=== PATIENT | female | born 1975 | race Caucasian/White ===

== ENCOUNTER → 2021-01-20 13:57 | Outpatient (CLI) | payer MEDICAID, SELFPAY ==
[2021-01-20 14:21] LABS: Basophils % 0.6 % (0.1-2.0); Eosinophils # 0.1 K/mm3 (0.0-0.4); Eosinophils % 1.3 % (0.1-12.0); Hematocrit 40.7 % (37.0-47.0); Hemoglobin 13.3 g/dL (12.2-16.2); Lymphocytes # 2.1 K/mm3 (0.7-4.5); Lymphocytes % 31.4 % (10-50); Mean Corpuscular HGB Conc 32.8 g/dL (31.8-35.4); Mean Corpuscular Hemoglobin 30.1 pg (27.0-31.2); Mean Corpuscular Volume 91.8 fl (81-99); Mean Platelet Volume 9.1 fl (7.4-10.4); Monocytes # 0.3 K/mm3 (0.1-1.0); Neutrophils # 4.2 K/mm3 (1.8-7.8); Neutrophils % 62.7 % (37.0-80.0); Platelet Count 287 K/mm3 (142-424); Red Blood Count 4.44 M/mm3 (4.20-5.40); Red Cell Distribution Width 15.4 % (11.5-17.5); White Blood Count 6.7 K/mm3 (4.8-10.8)
[2021-01-20 14:36] LABS: Chloride 105 mmol/L (98-107); Potassium 4.5 mmoL/L (3.5-5.1); Sodium 140 mmol/L (136-145)
[2021-01-20 14:39] LABS: Alanine Aminotransferase 30 U/L (12-78); Albumin Level 4.4 g/dl (3.5-5.0); Albumin/Globulin Ratio 1.3 (1.1-1.8); Alkaline Phosphatase 124 U/L (38-126); Anion Gap 12.5 mEq/L (5-15); Aspartate Amino Transferase 33 U/L (14-36); Bilirubin,Total 1.2 mg/dl (0.2-1.3); Blood Urea Nitrogen 15 mg/dl (7-17); Calcium 9.1 mg/dl (8.4-10.2); Carbon Dioxide 27 mmol/L (22.0-30.0); Cholesterol 247 mg/dl (140-200); Estimated Glomerular Filt Rate 91 ml/min (>60); GFR (African American) 111 ML/MIN (>60); Globulin 3.5 g/dL (1.3-3.2); Glucose 98 mg/dl (74-100); Total Protein,Serum 7.9 g/dl (6.3-8.2); Triglycerides 169 mg/dl (30-150); VLDL Cholesterol 34 mg/dL (0-40)
[2021-01-20 14:40] LABS: HDL Cholesterol 31 mg/dl (40-60)
[2021-01-20 14:50] LABS: Direct LDL Cholesterol 183.02 mg/dL (100-129)
[2021-01-20 18:58] LABS: Thyroid Stimulating Hormone 3.65 uIU/mL (0.465-4.68)
== END ==
PROVIDERS: Visit Provider Nurse Practitioner Family
DX: J45.909 Unspecified asthma, uncomplicated (principal); M79.7 Fibromyalgia; E55.9 Vitamin D deficiency, unspecified
CPT/HCPCS: 80053; 80061; 82306; 84436; 84443; 85025

== ENCOUNTER 2021-08-29 00:42 | Emergency (ER) | payer MEDICAID, SELFPAY ==
[2021-08-29 00:42] VITALS: BP 136/73; PULSE 92; RESP 18; TEMP 36.7; O2SAT 95; BMI 41.5
[2021-08-29 01:21] LABS: Basophils # 0.2 K/mm3 (0-0.2); Basophils % 2.2 % (0.1-2.0); Eosinophils # 0.2 K/mm3 (0.0-0.4); Eosinophils % 2.8 % (0.1-12.0); Hematocrit 40.3 % (42.0-52.0); Hemoglobin 12.5 g/dL (14.1-18.0); Lymphocytes # 3.5 K/mm3 (0.7-4.5); Lymphocytes % 46.5 % (10-50); Mean Corpuscular Hemoglobin 29.8 pg (27.0-31.2); Mean Platelet Volume 9.3 fl (7.4-10.4); Monocytes # 0.4 K/mm3 (0.1-1.0); Monocytes % 4.9 % (1.7-9.3); Neutrophils # 3.3 K/mm3 (1.8-7.8); Neutrophils % 43.6 % (37.0-80.0); Platelet Count 280 K/mm3 (142-424); Red Cell Distribution Width 16.5 % (11.5-17.5); White Blood Count 7.6 K/mm3 (4.8-10.8)
[2021-08-29 01:27] LABS: Alanine Aminotransferase 31 U/L (12-78); Albumin Level 4.1 g/dl (3.5-5.0); Albumin/Globulin Ratio 1.2 (1.1-1.8); Alkaline Phosphatase 104 U/L (38-126); Anion Gap 10.6 mEq/L (5-15); Aspartate Amino Transferase 38 U/L (17-59); Bilirubin,Total 0.5 mg/dl (0.2-1.3); Blood Urea Nitrogen 17 mg/dl (9-20); Calcium 8.5 mg/dl (8.4-10.2); Carbon Dioxide 29 mmol/L (22.0-30.0); Chloride 104 mmol/L (98-107); Creatinine Clearance Estimated 117 mL/min (50-200); Estimated Glomerular Filt Rate 123 ml/min (>60); GFR (African American) 148 ML/MIN (>60); Globulin 3.3 g/dL (1.3-3.2); Glucose 139 mg/dl (74-100); Potassium 3.6 mmoL/L (3.5-5.1); Sodium 140 mmol/L (136-145); Total Protein,Serum 7.4 g/dl (6.3-8.2)
[2021-08-29 01:47] LABS: Erythrocyte Sedimentation Rate 41 mm/hr (0-15)
--- NOTE | 2021-08-29 01:58 | HMH.EDGENADL ---
ED Disposition Clinical Impression: Neuropathic pain of both legs Disposition: Home, Self-Care Condition on Discharge: Good Instructions: DI for Acute Pain -- Adult Additional Instructions: see pcp for follow up Prescriptions: predniSONE [Prednisone 20mg Tab] 20 mg PO BID #10 tab Transmission Status: Pending to [facility] Ketorolac Tromethamine [Toradol 10mg tablet] 10 mg PO Q6HP PRN #10 tab MDD 40mg/day PRN Reason: Moderate To Severe Pain Transmission Status: Pending to [facility] Referrals: Provider,Referral, [Primary Care Provider] - - Critical Care Critical Care Time: No Attestation: On 08/29/21, the high probability of a clinically significant, sudden or life threatening deterioration of the following system(s) required my full and direct attention, intervention and personal management. The time I documented below is in addition to time spent performing reported procedures but includes the following listed in this critical care notation. Medical Decision Making - Medical Records Medical records reviewed: Yes: I reviewed the patient's medical records. - Domingo Inquiry Pt receiving controlled substance: No Vital Signs: 08/29/21 00:42 Temperature 98.1 F Temperature Source Oral Pulse Rate [Left Radial] 92 H Respiratory Rate 18 Blood Pressure [Right Arm] 136/73 Blood Pressure Mean [Right Arm] 94 Blood Pressure Source [Right Arm] Automatic Cuff Blood Pressure Position [Right Arm] Sitting 02 Sat by Pulse Oximetry 95 Oxygen Delivery Method Room Air - Lab Data Lab results reviewed: Yes: I reviewed the patient's lab results. Lab Results 08/29/21 01:10: WBC 7.6, RBC 4.20 L, Hgb 12.5 L, Hct 40.3 L, MCV 96.0 H, MCH 29.8, MCHC 31.0 L, RDW 16.5, Plt Count 280, MPV 9.3, Neut % (Auto) 43.6, Lymph % (Auto) 46.5, Park % (Auto) 4.9, Eos % (Auto) 2.8, Baso % (Auto) 2.2 H, Neut # (Auto) 3.3, Lymph # (Auto) 3.5, Park # (Auto) 0.4, Eos # (Auto) 0.2, Baso # (Auto) 0.2, ESR 41 H 08/29/21 01:10: Sodium 140, Potassium 3.6, Chloride 104, Carbon Dioxide 29, Anion Gap 10.6, BUN 17, Creatinine 0.70, Estimated Creat Clear 117, Estimated GFR 123, Est GFR ( Amer) 148, Glucose 139 H, Calcium 8.5, Total Bilirubin 0.5, AST 38, ALT 31, Alkaline Phosphatase 104, Total Protein 7.4, Albumin 4.1, Globulin 3.3 H, Albumin/Globulin Ratio 1.2 Result diagrams: 08/29/21 01:10 08/29/21 01:10 Orders (Tests/Meds): ED MEDICATIONS Generic Name Dose Route Start Last Admin Trade Name Freq PRN Reason Stop Dose Admin Dexamethasone Sodium Phosphate 8 mg 08/29/21 01:00 08/29/21 01:02 Dexamethasone 4mg/Ml 5ml Mdv IM 09/28/21 00:59 8 mg Q6H TYRESE Administration Discontinued Medications Generic Name Dose Route Start Last Admin Trade Name Freq PRN Reason Stop Dose Admin Ketorolac Tromethamine 60 mg 08/29/21 00:58 08/29/21 01:02 Ketorolac 60mg/2ml Vial IM 08/29/21 00:59 60 mg ONCE ONE Administration Medical Decision Narrative: stable exam and labs - General Adult HPI - General Chief complaint: PAIN Stated complaint: lower leg pain, knee pain Time Seen by Provider: 08/29/21 01:00 Mode of Arrival: Ambulatory Source of Information: Patient, Medical Record Limitations: No Limitations Description of Symptoms (Recalled from ER Triage Doc. by RN): PT REPORTS BILAT SHARP LEG PAIN FROM KNEES DOWN ON BOTH LEGS01/24. PT WITH HX OF FIBROMYALGIA CURRENTLY ON SUBOXONE, LYRICA, MOTRIN, EFFEXOR AND ABILIFY. PT DENIES ALL INJURIES - History of Present Illness HPI narrative: has atraumatic bilat lower leg pain with hx of fibromyalgia - pain over the last week - no fever/rash or trauma Onset (ago): week(s) Location: lower extremity Severity: moderate Associated symptoms: denies other symptoms Treatments prior to arrival: NSAID - Related Data Previous Rx's Medication Instructions Recorded Ketorolac Tromethamine [Toradol 10 mg PO Q6HP PRN #10 tab MDD 08/29/21 10
[2021-08-29 02:08] VITALS: BP 132/79; PULSE 92; RESP 18; TEMP 36.7; O2SAT 96
== END 2021-08-29 02:17 | disposition home or self-care (01) ==
PROVIDERS: Emergency Provider Emergency Medicine
DX: G62.9 Polyneuropathy, unspecified; M79.7 Fibromyalgia
CPT/HCPCS: 80053; 85025; 85651; 96372; 99282

== ENCOUNTER → 2021-09-24 13:19 | Outpatient (CLI) | payer MEDICAID, SELFPAY ==
[2021-09-23 19:18] LABS: Amphetamine/Metha Screen,Urine Negative ng/ml (<1000)
[2021-09-23 19:19] LABS: Barbiturates Screen,Urine Negative ng/ml (<200); Benzodiazepines Screen,Urine Negative ng/ml (<200)
[2021-09-23 19:20] LABS: Cannabinoid Screen,Urine Negative ng/ml (<50); Cocaine Screen,Urine Negative ng/ml (<300)
[2021-09-23 19:21] LABS: Methadone Screen,Urine Negative ng/ml (<300)
[2021-09-23 19:24] LABS: Opiate Screen,Urine Negative ng/ml (<300); Phencyclidine Screen,Urine Negative ng/ml (<25)
== END ==
PROVIDERS: Visit Provider Nurse Practitioner Family
DX: Z79.899 Other long term (current) drug therapy (principal)
CPT/HCPCS: 80305

== ENCOUNTER → 2022-05-27 11:30 | Outpatient (CLI) | payer MEDICAID, SELFPAY ==
[2022-05-27 15:34] LABS: Amphetamine/Metha Screen,Urine Negative ng/ml (<1000)
[2022-05-27 15:35] LABS: Barbiturates Screen,Urine Negative ng/ml (<200)
[2022-05-27 15:36] LABS: Benzodiazepines Screen,Urine Negative ng/ml (<200); Cannabinoid Screen,Urine Negative ng/ml (<50)
[2022-05-27 15:37] LABS: Cocaine Screen,Urine Negative ng/ml (<300); Methadone Screen,Urine Negative ng/ml (<300)
[2022-05-27 15:38] LABS: Opiate Screen,Urine Negative ng/ml (<300)
[2022-05-27 15:39] LABS: Phencyclidine Screen,Urine Negative ng/ml (<25)
--- NOTE | 2022-06-28 14:22 | PC.NURSE ---
I have made a few attempts to reach patient about a home sleep study but all I get is a recording that says call rejected,
== END ==
PROVIDERS: PCP Nurse Practitioner Family; Visit Provider Nurse Practitioner Family
DX: Z79.899 Other long term (current) drug therapy (principal)
CPT/HCPCS: 80305

== ENCOUNTER 2022-08-26 14:12 | Emergency (ER) | payer MEDICAID, SELFPAY ==
[2022-08-26 14:30] VITALS: BP 137/88; PULSE 68; RESP 20; O2SAT 97
[2022-08-26 14:31] VITALS: BP 123/70; PULSE 104; RESP 20; TEMP 37; O2SAT 97; BMI 40.3
--- NOTE | 2022-08-26 14:49 | HMH.EDGENADL ---
Discharge Plan Disposition Patient Disposition: Home, Self-Care Condition: Fair Prescriptions Prescriptions: New hydrocodone-acetaminophen 5-325 mg tablet 1 tab PO Q6H PRN (Reason: pain) Qty: 10 0RF clindamycin HCl 300 mg capsule 300 mg PO QID Qty: 40 0RF No Action albuterol sulfate 2.5 mg /3 mL (0.083 %) solution for nebulization 2.5 mg INHALATION Q4-6H PRN (Reason: shortness of breath or wheezing) Qty: 75 2RF buprenorphine-naloxone 8-2 mg tablet, sublingual 1 tab SUBLINGUAL DAILY aripiprazole [Abilify] 2 mg tablet 2 mg PO DAILY Qty: 90 0RF albuterol sulfate 90 mcg/actuation HFA aerosol inhaler 2 puff INHALATION Q4-6H PRN (Reason: shortness of breath or wheezing) Qty: 8.5 2RF cholecalciferol (vitamin D3) 50 mcg (2,000 unit) capsule 50 mcg PO DAILY 30 Days Qty: 30 3RF cholecalciferol (vitamin D3) 1,250 mcg (50,000 unit) tablet 1,250 mcg PO WEEKLY Qty: 7 2RF fluticasone propion-salmeterol 100-50 mcg/dose blister with device 1 inh INHALATION DAILY Qty: 60 2RF venlafaxine [Effexor XR] 150 mg capsule,extended release 24hr 150 mg PO DAILY Qty: 90 1RF pregabalin 300 mg capsule 300 mg PO TID Qty: 90 2RF Rx Instructions: Due to family emergency and traveling may fill early ibuprofen 800 mg tablet See Rx Instructions .ROUTE .COMPLEX Qty: 60 0RF Dose Instruction: TAKE ONE TABLET BY MOUTH THREE TIMES DAILY NEEDED FOR PAIN (ONLY take NEEDED) --TAKE WITH FOOD-- Rx Instructions: TAKE ONE TABLET BY MOUTH THREE TIMES DAILY NEEDED FOR PAIN (ONLY take NEEDED) --TAKE WITH FOOD-- Referrals Follow up/Referrals: Obed Roberts APRN [Primary Care Provider] - See instructions Activity Restrictions/Add. Instructions Additional Instructions/Restrictions: Clindamycin, antibiotic, as prescribed. Chesaning as needed for pain. May also take ibuprofen 600 mg every 6 hours. Additional instructions for DENTAL PROBLEMS: See a dentist as soon as possible for further evaluation. Return immediately if you have an uncontrollable fever greater than 102 degrees, difficulty breathing or shortness of breath, persistent vomiting, or inability to swallow. Clinical Impressions Clinical Impression: Abscess, dental, Infected dental caries Instructions Patient Instructions: DI for Tooth Abscess, DI for Tooth Decay Discharge ED Provider: Rajendra To General Adult HPI General Chief complaint: PAIN Stated complaint: RT side mouth pain inflammation Time Seen by Provider: 08/26/22 14:39 Mode of Arrival: Ambulatory Source of Information: Patient Limitations: No Limitations Description of Symptoms (Recalled from ER Triage Doc. by RN): pt to ed c/o right sided facial swelling. pt states she has a tooth abscess that started to worsen today. pt reports pain to her upper gums. History of Present Illness HPI narrative: Patient states that she had a toothache yesterday right anterior maxillary area. Today when she awakened her right side of her face was swollen. The malar area swollen up to her lower eyelid. No visual disturbance except for swelling of the eyelid. No trouble breathing or swallowing. No fever at home. She took ibuprofen 600 mg about 6 hours ago. She says that she has made an appoint with a dentist, cannot get in until October 01. Therefore comes to the emergency department. Related Data Home Medications Medication Instructions Recorded Confirmed buprenorphine 8 mg-naloxone 2 mg 1 tab sublingual DAILY 01/20/21 08/12/22 sublingual tablet Previous Rx's Medication Instructions Recorded albuterol sulfate 2.5 mg/3 mL 2.5 mg (3 mL) inhalation Q4-6H PRN 11/05/21 (0.083 %) solution for nebulization shortness of breath or wheezing #75 mL ibuprofen 800 mg tablet See Rx Instructions .Route 07/23/22 .COMPLEX #60 tabs albuterol sulfate 90 mcg/actuation 2 puff inhalation Q4-6H PRN 08/12/22 aerosol inhaler shortness of breath or wheezing
[2022-08-26 14:54] LABS: Basophils # 0.1 K/mm3 (0-0.2); Basophils % 0.9 % (0.1-2.0); Eosinophils # 0.2 K/mm3 (0.0-0.4); Eosinophils % 2.4 % (0.1-12.0); Hematocrit 39.3 % (37.0-47.0); Hemoglobin 13.2 g/dL (12.2-16.2); Lymphocytes # 2.3 K/mm3 (0.7-4.5); Lymphocytes % 27.9 % (10-50); Mean Corpuscular HGB Conc 33.6 g/dL (31.8-35.4); Mean Corpuscular Hemoglobin 30.8 pg (27.0-31.2); Mean Corpuscular Volume 91.6 fl (81-99); Mean Platelet Volume 9.9 fl (7.4-10.4); Monocytes # 0.4 K/mm3 (0.1-1.0); Monocytes % 4.3 % (1.7-9.3); Neutrophils # 5.2 K/mm3 (1.8-7.8); Neutrophils % 64.4 % (37.0-80.0); Platelet Count 180 K/mm3 (142-424); Red Blood Count 4.29 M/mm3 (4.20-5.40); Red Cell Distribution Width 15.7 % (11.5-17.5); White Blood Count 8.1 K/mm3 (4.8-10.8)
[2022-08-26 15:03] LABS: Alanine Aminotransferase 20 U/L (12-78); Albumin Level 3.9 g/dl (3.5-5.0); Albumin/Globulin Ratio 1.1 (1.1-1.8); Alkaline Phosphatase 104 U/L (38-126); Aspartate Amino Transferase 25 U/L (14-36); Bilirubin,Total 0.5 mg/dl (0.2-1.3); Blood Urea Nitrogen 16 mg/dl (7-17); Calcium 8.4 mg/dl (8.4-10.2); Carbon Dioxide 31 mmol/L (22.0-30.0); Chloride 107 mmol/L (98-107); Creatinine Clearance Estimated 159 mL/min (50-200); Estimated Glomerular Filt Rate 78 ml/min (>60); GFR (African American) 94 ML/MIN (>60); Globulin 3.5 g/dL (1.3-3.2); Glucose 112 mg/dl (74-100); Sodium 140 mmol/L (136-145); Total Protein,Serum 7.4 g/dl (6.3-8.2)
--- NOTE | 2022-08-26 15:18 | PC.NURSE ---
4/10 pain described as pressure to right side of face.
--- NOTE | 2022-08-26 15:24 | PC.NURSE ---
Right-sided facial swelling noted radiating to periorbital area. + right eye drainage (clear, thin). Denies visual changes.
--- NOTE | 2022-08-26 15:47 | PC.NURSE ---
Patient updated on plan of care; pending discharge upon completion of abx.
--- NOTE | 2022-08-26 15:50 | PC.NURSE ---
Pain reassessment 08/27
[2022-08-26 16:25] VITALS: BP 115/69; PULSE 100; RESP 16; TEMP 36.9; O2SAT 100
== END 2022-08-26 16:29 | disposition home or self-care (01) ==
PROVIDERS: Emergency Provider Emergency Medicine; PCP Nurse Practitioner Family
DX: K04.7 Periapical abscess without sinus (principal); K02.9 Dental caries, unspecified
CPT/HCPCS: 80053; 85025; 87040; 96374; 96375; 99285; J2405

== ENCOUNTER 2024-03-06 10:45 | Outpatient (CLI) | payer MEDICAID, SELFPAY ==
[2024-03-06 19:29] LABS: Alanine Aminotransferase 20 U/L (12-78); Albumin Level 3.8 g/dl (3.5-5.0); Albumin/Globulin Ratio 1.2 (1.1-1.8); Alkaline Phosphatase 80 U/L (38-126); Anion Gap 7.2 mEq/L (5-15); Aspartate Amino Transferase 25 U/L (14-36); Blood Urea Nitrogen 17 mg/dl (7-17); Calcium 9.4 mg/dl (8.4-10.2); Carbon Dioxide 32 mmol/L (22.0-30.0); Chloride 104 mmol/L (98-107); Chol/HDL Ratio 8.8 (1-3.5); Cholesterol 254 mg/dl (140-200); Estimated Glomerular Filt Rate 77 ml/min (>60); GFR (African American) 93 ML/MIN (>60); Globulin 3.3 g/dL (1.3-3.2); Glucose 85 mg/dl (74-100); HDL Cholesterol 29 mg/dl (40-60); Potassium 4.2 mmoL/L (3.5-5.1); Sodium 139 mmol/L (136-145); Total Protein,Serum 7.1 g/dl (6.3-8.2); Triglycerides 190 mg/dl (30-150); VLDL Cholesterol 38 mg/dL (0-40)
[2024-03-06 19:30] LABS: Basophils # 0.1 K/mm3 (0-0.2); Basophils % 1.2 % (0.1-2.0); Eosinophils # 0.1 K/mm3 (0.0-0.4); Eosinophils % 1.8 % (0.1-12.0); Hemoglobin 13.2 g/dL (12.2-16.2); Lymphocytes # 2.4 K/mm3 (0.7-4.5); Lymphocytes % 40.7 % (10-50); Mean Corpuscular HGB Conc 30.7 g/dL (31.8-35.4); Mean Corpuscular Hemoglobin 31.5 pg (27.0-31.2); Mean Corpuscular Volume 102.6 fl (81-99); Monocytes # 0.3 K/mm3 (0.1-1.0); Monocytes % 5.3 % (1.7-9.3); Neutrophils % 50.8 % (37.0-80.0); Platelet Count 239 K/mm3 (142-424); Red Blood Count 4.19 M/mm3 (4.20-5.40); Red Cell Distribution Width 16.6 % (11.5-17.5); White Blood Count 5.8 K/mm3 (4.8-10.8)
[2024-03-06 19:40] LABS: Direct LDL Cholesterol 177.52 mg/dL (100-129)
[2024-03-06 19:46] LABS: Free T4 (Free Thyroxine) 1.57 ng/dl (0.78-2.19)
[2024-03-06 19:59] LABS: Thyroid Stimulating Hormone 3.56 uIU/mL (0.465-4.68)
[2024-03-06 20:32] LABS: Hemoglobin A1C 5.4 % (4.0-6.0)
[2024-03-17 03:36] LABS: 1,25 Dihydroxy Vitamin D 35 pg/mL (.); 1,25-Dihydroxy, Vitamin D-2 <10 pg/mL (.); 1,25-Dihydroxy, Vitamin D-3 35 pg/mL (.)
== END 2024-03-06 23:59 | disposition home or self-care (01) ==
LOC: LAB.DROPOF 03-07 10:45
PROVIDERS: PCP Nurse Practitioner Family; Visit Provider Nurse Practitioner Family
DX: R53.83 Other fatigue (principal); R73.09 Other abnormal glucose; E78.5 Hyperlipidemia, unspecified
CPT/HCPCS: 80050; 80053; 80061; 82652; 83036; 84439; 84443; 85025